=== PATIENT | female | born 1980 | race Two or more races ===

== ENCOUNTER 2017-03-15 11:06 | Emergency (ER) | payer MEDICAID ==
[~2017-03-15] VITALS: Ht 160 cm; Wt 76.7 kg
--- NOTE | 2017-03-15 11:44 | Emergency Room Report ---
History of Present Illness General Chief Complaint: Fever Source: Patient Present Illness HPI Patient feels ill with a flank pain chills fever and body aches with headache since . She's been taking ibuprofen. She was vomiting last night. She also has dysuria. Her period started yesterday and normal for her. She also has a headache which is severe. This was gradual in onset and is pounding - worse with fever - more top of head. Not radiate to neck and no meningismus. She has a history of migraines. She's never been ill like this before. No change in bowels. No anterior abdominal pain. All joints are aching. No rash. No URI sy. No chest pain. Allergies: Coded Allergies: No Known Allergies (Unverified , 03/15/17) Patient History Past Medical History: see triage record Social History Narrative brought by friend - works Last Menstrual Period: 03/14/17 Now: No Reviewed Nursing Documentation: PMH: Agreed, PSxH: Agreed Review of Systems All Other Systems: negative except mentioned in HPI Physical Exam Vital Signs Date Time Temp Pulse Resp B/P (MAP) Pulse Ox O2 Delivery O2 Flow Rate FiO2 03/15/17 11:12 102.0 119 15 116/82 96 Room Air Sp02 EP Interpretation: reviewed, normal General Appearance: well appearing, GCS 15, mild distress Head: normocephalic, atraumatic Eyes: bilateral eye normal inspection, bilateral eye PERRL ENT: normal pharynx, moist mucus membranes Neck: full range of motion, supple, no meningismus Respiratory: chest non-tender, lungs clear, normal breath sounds Cardiovascular #1: regular rate, rhythm Cardiovascular #2: 2+ radial (R) Gastrointestinal: normal inspection, normal bowel sounds, non tender, no mass, non-distended Genitourinary: CVA tenderness (R) Musculoskeletal: gait/station normal, normal range of motion Neurologic: alert, oriented x3, computer forwarding system markup clerk III-XII nml as tested, motor strength/tone normal, DTRs symmetric, sensory intact, cerebellar normal, normal gait, speech normal Psychiatric: anxious Skin: normal inspection, warm/dry Medical Decision Making Diagnostic Impression: Primary Impression: Pyelonephritis Additional Impression: Headache Qualified Codes: R51 - Headache ER Course Patient presents with fever chills and total body pain with more right flank pain. Differential includes viral syndrome, pyelonephritis, urinary tract infection, diverticulitis amongst others. Evaluation will be with labs and urinalysis. The patient will receive IV hydration, Toradol and morphine. Urinalysis reveals pyuria. Rocephin is begun here. Leukocytosis. Abd exam against surgical cause. Patient still complains about headache. Dilaudid is given at this time. Still with MEJÍA but improved. Discussed with patient to return if not doing well. Patient stable for outpatient observation and treatment. Laboratory Tests Test 03/15/17 11:56 03/15/17 13:30 White Blood Count 12.9 K/UL (4.8-10.8) H Red Blood Count 4.54 M/UL (4.20-5.40) Hemoglobin 13.7 G/DL (12.0-16.0) Hematocrit 40.1 % (37.0-47.0) Mean Corpuscular Volume 88 FL (80-99) Mean Corpuscular Hemoglobin 30.1 PG (27.0-31.0) Mean Corpuscular Hemoglobin Concent 34.0 G/DL (32.0-36.0) Red Cell Distribution Width 12.6 % (11.6-14.8) Platelet Count 232 K/UL (150-450) Mean Platelet Volume 7.1 FL (6.5-10.1) Neutrophils (%) (Auto) % (45.0-75.0) Lymphocytes (%) (Auto) % (20.0-45.0) Monocytes (%) (Auto) % (1.0-10.0) Eosinophils (%) (Auto) % (0.0-3.0) Basophils (%) (Auto) % (0.0-2.0) Differential Total Cells Counted 100 Neutrophils % (Manual) 92 % (45-75) H Lymphocytes % (Manual) 4 % (20-45) L Monocytes % (Manual) 2 % (1-10) Eosinophils % (Manual) 0 % (0-3) Basophils % (Manual) 0 % (0-2) Band Neutrophils 2 % (0-8) Platelet Estimate Adequate Platelet Morphology Normal Red Blood Cell Morphology Normal Sodium Level 139 mEQ/L (135-145) Potassium Level 3.3 mEQ/L (3.4-4.9) L Chloride Level 101 mEQ/L (98-107) Carbon Dioxide Level 23 mEQ/L (20-30) Anion Gap 15 (5-15) Blood Urea Nitrogen 9 mg/dL (7-23) Creatinine 0.9 mg/dL (0.5-0.9) Estimate Glomerular Filtration Rate > 60 mL/min (>60) Glucose Level 107 mg/dL (74-106) H Calcium Level 8.8 mg/dL (8.6-10.2) Total Bilirubin 0.5 mg/dL (0.0-1.2) Aspartate Amino Transferase (AST) 15 U/L (5-40) Alanine Aminotransferase (ALT) 13 U/L (3-33) Alkaline Phosphatase 52 U/L (35-104) Total Protein 7.4 g/dL (6.6-8.7) Albumin 4.0 g/dL (3.5-5.2) Globulin 3.4 g/dL Albumin/Globulin Ratio 1.1 (1.0-2.7) Lipase 12 U/L (< 60) Urine Color Pale yellow Urine Appearance Cloudy Urine pH 6 (4.5-8.0) Urine Specific [place] 1.010 (1.005-1.035) Urine Protein 2+ (NEGATIVE) H Urine Glucose (UA) Negative (NEGATIVE) Urine Ketones 1+ (NEGATIVE) H Urine Occult Blood 5+ (NEGATIVE) H Urine Nitrite Positive (NEGATIVE) H Urine Bilirubin Negative (NEGATIVE) Urine Urobilinogen Normal MG/DL (0.0-1.0) Urine Leukocyte Esterase 3+ (NEGATIVE) H Urine RBC 5-10 /HPF (0 - 2) H Urine WBC 60-80 /HPF (0 - 2) H Urine Squamous Epithelial Cells Few /LPF (NONE/OCC) Urine Bacteria Moderate /HPF (NONE) H Urine HCG, Qualitative Negative Last Vital Signs Date Time Temp Pulse Resp B/P (MAP) Pulse Ox O2 Delivery O2 Flow Rate FiO2 03/15/17 15:40 98.4 84 15 116/82 97 Room Air Status: improved Disposition: HOME, SELF-CARE Condition: Improved Scripts Tramadol Hcl* (ULTRAM*) 50 Mg Tablet 50 MG ORAL Q6H Y for For Pain, #10 TAB 0 Refills Prov: Rodriguez Melendez M.D. 03/15/17 Acetaminophen (Tylenol) 325 Mg Tablet 650 MG ORAL Q6H Y for Prn Pain/Headache/Temp > 101, #30 TAB 0 Refills Prov: Rodriguez Melendez M.D. 03/15/17 Ibuprofen* (MOTRIN*) 600 Mg Tablet 600 MG ORAL Q6H Y for For Pain, #20 TAB Prov: Rodriguez Melendez M.D. 03/15/17 Cephalexin* (KEFLEX*) 500 Mg Capsule 500 MG ORAL Q6H, #40 CAP 0 Refills Prov: Rodriguez Melendez M.D. 03/15/17 Rodriguez Melendez M.D. Mar 15, 2017 11:44
[2017-03-15] MEDS ORDERED: Morphine Sulfate 4mg/ml Inj IVP ONE (11:45)
[2017-03-15] MEDS ORDERED: Ketorolac 30mg Inj IV ONE (11:45)
[2017-03-15 12:00] VITALS: BP 116/82
[2017-03-15 12:23] LABS: MEAN CORPUSCULAR HEMOGLOBIN 30.1 PG (27.0-31.0); MEAN CORPUSCULAR VOLUME 88 FL (80-99); MEAN PLATELET VOLUME 7.1 FL (6.5-10.1); PLATELET COUNT 232 K/UL (150-450); RED BLOOD COUNT 4.54 M/UL (4.20-5.40); RED CELL DISTRIBUTION WIDTH 12.6 % (11.6-14.8); WHITE BLOOD COUNT 12.9 K/UL (4.8-10.8)
[2017-03-15 12:28] LABS: ALANINE AMINOTRANSFERASE 13 U/L (3-33); ALBUMIN/GLOBULIN RATIO 1.1 (1.0-2.7); ANION GAP 15 (5-15); ASPARTATE AMINO TRANSFERASE 15 U/L (5-40); CALCIUM 8.8 mg/dL (8.6-10.2); CARBON DIOXIDE 23 mEQ/L (20-30); CHLORIDE 101 mEQ/L (98-107); CREATININE 0.9 mg/dL (0.5-0.9); GLOMERULAR FILTRATION RATE > 60 mL/min (>60); HEMOLYSIS 1; LIPASE 12 U/L (< 60); POTASSIUM 3.3 mEQ/L (3.4-4.9); SODIUM 139 mEQ/L (135-145); TOTAL PROTEIN 7.4 g/dL (6.6-8.7)
[2017-03-15 13:02] LABS: BAND NEUTROPHILS % (MANUAL) 2 % (0-8); LYMPHOCYTES % (MANUAL) 4 % (20-45); NEUTROPHILS % (MANUAL) 92 % (45-75); TOTAL CELLS COUNTED 100
[2017-03-15 13:03] LABS: BASOPHILS % (MANUAL) 0 % (0-2); EOSINOPHILS % (MANUAL) 0 % (0-3); PLATELET ESTIMATE ADEQUATE; PLATELET MORPHOLOGY NORMAL
[2017-03-15 14:04] LABS: APPEARANCE,URINE CLOUDY; KETONES,URINE 1+ (NEGATIVE); LEUKOCYTE ESTERASE ,URINE 3+ (NEGATIVE); NITRITE,URINE POSITIVE (NEGATIVE); PH,URINE 6 (4.5-8.0); PROTEIN,URINE 2+ (NEGATIVE); UROBILINOGEN,URINE NORMAL MG/DL (0.0-1.0)
[2017-03-15 14:12] LABS: BACTERIA,URINE MODERATE /HPF; SQUAMOUS EPITHELIAL CELL,UR FEW /LPF (NONE/OCC); WBC,URINE 60-80 /HPF (0 - 2)
[2017-03-15] MEDS ORDERED: cefTRIAXone 1 GM in NS 55 ML IVPB ONE (14:15)
[2017-03-15] MEDS ORDERED: Hydromorphone 0.5mg/0.5ml inj IVP ONE (15:00)
[2017-03-15 15:06] VITALS: BP 116/82
[2017-03-15] MEDS ORDERED: TYLENOL325 MG ORAL (15:26)
[2017-03-15] MEDS ORDERED: IBUPROFEN600 MG ORAL (15:26)
[2017-03-15] MEDS ORDERED: KEFLEX500 MG ORAL (15:26)
[2017-03-15] MEDS ORDERED: TRAMADOL HCL50 MG ORAL (15:27)
[2017-03-15 15:40] VITALS: BP 116/82
== END 2017-03-15 15:41 | disposition home or self-care (01) ==
LOC: EMR 11:45
DX: N12 Tubulo-interstitial nephritis, not specified as acute or chronic (principal); R51 Headache
CPT/HCPCS: 36415; 80053; 81003; 81025; 83690; 85007; 85025; 87086; 87181; 96361; 96374; 96375; 99284; J0696; J1170; J1885; J2270; J2405

== ENCOUNTER 2018-05-04 17:54 | Emergency (ER) | payer MEDICAID ==
[~2018-05-04] VITALS: Ht 160 cm; Wt 68.0 kg
[~2018-05-04 17:54] MED LIST: IBUPROFEN600 MG ORAL; KEFLEX500 MG ORAL; TRAMADOL HCL50 MG ORAL; TYLENOL325 MG ORAL
[2018-05-04 18:13] VITALS: BP 123/84
[2018-05-04] MEDS ORDERED: CORTISPORIN10 ML OTIC (18:17)
--- NOTE | 2018-05-04 18:17 | Emergency Room Report ---
History of Present Illness General Chief Complaint: Earache Source: Patient Present Illness HPI 37-year-old female patient presents ER complaining of ear pain for the past 2 days. Patient reports that she believes the symptoms are the result of when she was moving some boxes and some mothballs fell down. Reports her symptoms began the next day. Denies recent swimming. Patent states that she uses Q- tips. Denies fever, chest pain, shortness of breath, vomiting. Allergies: Coded Allergies: No Known Allergies (Unverified , 03/15/17) Patient History Past Medical History: see triage record Last Menstrual Period: Now Now: No Reviewed Nursing Documentation: PMH: Agreed; PSxH: Agreed Nursing Documentation-PMH Past Medical History: No History, Except For Review of Systems All Other Systems: negative except mentioned in HPI Physical Exam Vital Signs Date Time Temp Pulse Resp B/P (MAP) Pulse Ox O2 Delivery O2 Flow Rate FiO2 05/04/18 18:03 98.4 68 19 123/84 96 Room Air Sp02 EP Interpretation: reviewed, normal General Appearance: well appearing, no apparent distress, alert, GCS 15, non- toxic Head: normocephalic, atraumatic Eyes: bilateral eye normal inspection, bilateral eye PERRL ENT: hearing grossly normal, normal pharynx, no angioedema, normal voice, TMs + canals normal - right ear, uvula midline, moist mucus membranes, other - left ear: purulent discharge noted in ear canal, pain with ear pulling Neck: full range of motion Respiratory: lungs clear, normal breath sounds, no rhonchi, no respiratory distress, no accessory muscle use, no wheezing, speaking full sentences Cardiovascular #1: regular rate, rhythm, no edema Musculoskeletal: back normal, digits/nails normal, gait/station normal, normal range of motion, non-tender Neurologic: alert, oriented x3, responsive, motor strength/tone normal, sensory intact Skin: no rash Medical Decision Making PA Attestation Dr. Matthews is my supervising Physician whom patient management has been discussed with. Diagnostic Impression: Primary Impression: Otitis externa ER Course Pt presents to ED c/o ear pain. DDX considered but are not limited to rhinitis, sinusitis, otitis media, otitis externa, cellulitis, mastoiditis, cerumen impaction. Low suspicion for mastoiditis, no swelling or erythema noted posterior to ear, no TTP. VITAL SIGNS are WNL, patient is afebrile. ED INTERVENTIONS: Patient ear cleaned and irrigated with saline lavage. Cerumen and purulent discharge removed following lavage. No FB visualized. patient reports symptoms have improved, states she can hear better following lavage. Repeat exam shows nonerythematous TM without effusion, no rupture, erythematous and edematous ear canal. likely otitis externa. Continue taking medications as previously instructed. Avoid swimming. do not use q-tips ER precautions given. DISCHARGE: -Rx provided for Neomycin/polmyxin B At this time pt is stable for d/c to home. resting comfortably chest, nontoxic appearing. Patient to take medications as instructed Will provide with patient care instructions and any necessary prescriptions. Care plan and follow-up instructions provided. Patient instructed to follow-up with primary care in 3 - 5 days. Patient questions asked and answered. ER precautions given. Patient instructed to return to ER immediately for any new or worsening of symptoms including but not limited to increasing SOB, persistent fever. - Please note that this Emergency Department Report was dictated using [employer] roll operator technology software, occasionally this can lead to erroneous entry secondary to interpretation by the dictation equipment. Last Vital Signs Date Time Temp Pulse Resp B/P (MAP) Pulse Ox O2 Delivery O2 Flow Rate FiO2 05/04/18 18:03 98.4 68 19 123/84 96 Room Air Status: improved Disposition: HOME, SELF-CARE Condition: Stable Scripts Neomycin/Polymyxin/Hydrocort (Ysdujiig-Lorlqwtfv-Hd Ear Soln) 10 Ml Solution 10 ML OTIC TID, #10 ML Prov: Dakota Fuller 05/04/18 Referrals: NOT CHOSEN IPA/,REFERRING (PCP) Patient Instructions: Otitis Externa Additional Instructions: Followup with primary care provider in 3 -5 days. Discuss referral to ENT specialist as needed. Take medications as directed. Patient questions asked and answered. ER precautions given, patient instructed to return to ER immediately for any new or worsening of symptoms. Dakota Fuller May 04, 2018 18:17
[2018-05-04 18:29] VITALS: BP 123/84
== END 2018-05-04 18:29 | disposition home or self-care (01) ==
LOC: EMR 18:12
DX: H60.92 Unspecified otitis externa, left ear (principal)
CPT/HCPCS: 99282

== ENCOUNTER 2018-09-24 21:07 | Emergency (ER) | payer MEDICAID ==
[~2018-09-24] VITALS: Ht 152.4 cm; Wt 68.9 kg
[~2018-09-24 21:07] MED LIST changes: +CORTISPORIN10 ML OTIC
[2018-09-24 21:10] VITALS: BP 126/78
[2018-09-24] MEDS ORDERED: NKM (21:20)
--- NOTE | 2018-09-24 21:23 | NUR ---
ED Nurse Note: pt walked in due to cough, cold and headache x 5 days. Pt si AO x 4times, VSS, on room air no distress. ERMD seen Pt at bedside.
[2018-09-24] MEDS ORDERED: AUGMENTIN 875-1 EAC1 ORAL (21:35)
[2018-09-24] MEDS ORDERED: PSEUDOEPHEDRINE60 MG PO (21:35)
--- NOTE | 2018-09-24 21:37 | Emergency Room Report ---
History of Present Illness General Chief Complaint: Upper Respiratory Illness Source: Patient Present Illness [facility] This is a 38-year-old female with no past medical history. She presents with chief complaint of coughing congestion. Onset for 5 days. Increasing ear pain. Increasing congestion. Coughing is productive of phlegm. No fever chills but no nausea no vomiting. Denies any trauma. Nothing made it better. Nothing made it worse. No relief with [id number] medication. Allergies: Coded Allergies: No Known Allergies (Unverified , 03/15/17) Patient History Past Medical History: see triage record, old chart reviewed Past Surgical History: none Pertinent Family History: none Social History: Denies: smoking Last Menstrual Period: september Now: No : 3 Para: 3 Immunizations: other Reviewed Nursing Documentation: PMH: Agreed; PSxH: Agreed Review of Systems Eye: Reports: nose congestion; Denies: eye pain, blurred vision ENT: Reports: ear pain; Denies: nose congestion, throat swelling Respiratory: Reports: cough; Denies: shortness of breath Cardiovascular: Denies: chest pain, palpitations Gastrointestinal: Denies: abdominal pain, diarrhea, nausea, vomiting Musculoskeletal: Denies: back pain, joint pain Skin: Denies: rash Neurological: Denies: headache, numbness Endocrine: Denies: increased thirst, increased urine Hematologic/Lymphatic: Denies: easy bruising All Other Systems: negative except mentioned in HPI Physical Exam Vital Signs Date Time Temp Pulse Resp B/P (MAP) Pulse Ox O2 Delivery O2 Flow Rate FiO2 09/24/18 21:16 98.1 75 18 122/79 97 Room Air vitals normal Sp02 EP Interpretation: reviewed, normal General Appearance: well appearing, no apparent distress, alert Head: normocephalic, atraumatic Eyes: bilateral eye PERRL, bilateral eye EOMI ENT: hearing grossly normal, normal pharynx, other - Bilateral TM with effusion Neck: full range of motion, supple, no meningismus Respiratory: chest non-tender, lungs clear, normal breath sounds Cardiovascular #1: regular rate, rhythm, no murmur Gastrointestinal: normal bowel sounds, non tender, no mass, no organomegaly, no bruit, non-distended Musculoskeletal: back normal, gait/station normal, normal range of motion Psychiatric: mood/affect normal Skin: warm/dry Medical Decision Making Diagnostic Impression: Primary Impression: Upper respiratory infection Qualified Codes: J06.9 - Acute upper respiratory infection, unspecified Additional Impression: Bilateral otitis media with effusion ER Course She presents with a viral upper respiratory infection with secondary otitis media bilaterally. Notice any sepsis, meningitis, pneumonia or other serious bacterial infection. Last Vital Signs Date Time Temp Pulse Resp B/P (MAP) Pulse Ox O2 Delivery O2 Flow Rate FiO2 09/24/18 21:16 98.1 75 18 122/79 97 Room Air Status: unchanged Disposition: HOME, SELF-CARE Condition: Stable Scripts Pseudoephedrine Hcl* (SUDAFED*) 60 Mg Tablet 60 MG PO Q6H, #30 TAB Prov: Pavan Estrella MD 09/24/18 Amoxicillin/Potassium Clav 875-125* (AUGMENTIN 875-125 TABLET*) 1 Each Tablet 1 TAB ORAL TWICE A DAY, #14 TAB Prov: Pavan Estrella MD 09/24/18 Referrals: NON PHYSICIAN (PCP) Patient Instructions: Upper Respiratory Infection, Adult Additional Instructions: Follow-up with your DrWilbert in 2-3 days. Return if symptom worsen. Pavan Estrella MD Sep 24, 2018 21:37
[2018-09-24 21:47] VITALS: BP 122/79
--- NOTE | 2018-09-24 21:47 | NUR ---
ER DISCHARGE NOTE: Patient is cleared to be discharged per ERMD, pt is aox4, on room air, with stable vital signs. pt was given dc and prescription instructions, pt was able to verbalize understanding, pt id band and removed without complications. pt is able to ambulate with steady gait. pt took all belongings.
== END 2018-09-24 21:47 | disposition home or self-care (01) ==
LOC: EMR 21:24
DX: J06.9 Acute upper respiratory infection, unspecified (principal); H65.93 Unspecified nonsuppurative otitis media, bilateral; B34.9 Viral infection, unspecified
CPT/HCPCS: 99282

== ENCOUNTER 2019-02-03 15:59 | Emergency (ER) | payer MEDICAID ==
[~2019-02-03] VITALS: Ht 157.5 cm; Wt 71.7 kg
[~2019-02-03 15:59] MED LIST changes: +AUGMENTIN 875-1 EAC1 ORAL; +NKM; +PSEUDOEPHEDRINE60 MG PO
[2019-02-03 16:40] VITALS: BP 105/74
--- NOTE | 2019-02-03 16:54 | Emergency Room Report ---
History of Present Illness General Chief Complaint: Pain Source: Patient Present Illness HPI 38-year-old female with no segment past medical history here complaining of minimal pain 3 out of 10 at the navel and mild to clear discharge coming out today. Patient reports that she often cleans her navel with Q-tips. Denies any abdominal pain, nausea vomiting, heavy lifting, history of umbilical hernia. Patient reports that many years ago she had bilateral tubal ligation and a date that laparoscopically going to her navel. No fever and chills, chest pain, shortness of breath, palpitation. No erythema or edema noted at the site of patient's complaint. Denies all other associated symptoms denies any medication for her symptoms. Allergies: Coded Allergies: No Known Allergies (Unverified , 03/15/17) Patient History Past Medical History: see triage record Past Surgical History: unable to obtain Pertinent Family History: none Last Menstrual Period: 02/03/19 Now: No Immunizations: UTD Reviewed Nursing Documentation: PMH: Agreed; PSxH: Agreed Nursing Documentation-PMH Past Medical History: No History, Except For Review of Systems All Other Systems: negative except mentioned in HPI Physical Exam Vital Signs Date Time Temp Pulse Resp B/P (MAP) Pulse Ox O2 Delivery O2 Flow Rate FiO2 02/03/19 16:15 98.8 69 20 105/74 (84) 98 Room Air Sp02 EP Interpretation: reviewed, normal General Appearance: normal inspection, well appearing, no apparent distress, alert, GCS 15 Head: normocephalic, atraumatic Eyes: bilateral eye normal inspection, bilateral eye PERRL ENT: normal ENT inspection, hearing grossly normal, normal pharynx Neck: normal inspection, full range of motion, supple Respiratory: normal inspection, chest non-tender, lungs clear, normal breath sounds, no rhonchi Cardiovascular #1: normal inspection, regular rate, rhythm, no murmur Gastrointestinal: normal inspection, normal bowel sounds, non tender, soft, no peritonitis, no guarding Rectal: deferred Genitourinary: normal inspection, no CVA tenderness Musculoskeletal: back normal Neurologic: normal inspection, alert Psychiatric: normal inspection, judgement/insight normal Skin: no rash Lymphatic: normal inspection, no adenopathy Medical Decision Making PA Attestation All diagnoses and treatment plans were reviewed and discussed with my supervising physician Dr. Jose Diagnostic Impression: Primary Impression: Navel cellulitis ER Course 38-year-old female with no segment past medical history here complaining of minimal pain 3 out of 10 at the navel and mild to clear discharge coming out today. Patient reports that she often cleans her navel with Q-tips. Denies any abdominal pain, nausea vomiting, heavy lifting, history of umbilical hernia. Patient reports that many years ago she had bilateral tubal ligation and a date that laparoscopically going to her navel. No fever and chills, chest pain, shortness of breath, palpitation. No erythema or edema noted at the site of patient's complaint. Denies all other associated symptoms denies any medication for her symptoms. Ddx considered but are not limited to : Cellulitis, DVT, superficial infection, abscess Vital signs: are WNL, pt. is afebrile H&PE are most consistent with: Superficial cellulitis of the navel ORDERS: Keflex ED INTERVENTIONS: None required at this time. DISCHARGE: At this time pt. is stable for d/c to home. Will provide printed patient care instructions, and any necessary prescriptions. Care plan and follow up instructions have been discussed with the patient prior to discharge. Patient to follow-up with a primary care provider for further work-up and abdominal ultrasound at this time no acute condition is noted in order to indicate any imaging or blood work this patient is stable with stable vital signs Last Vital Signs Date Time Temp Pulse Resp B/P (MAP) Pulse Ox O2 Delivery O2 Flow Rate FiO2 02/03/19 16:40 98.8 74 20 105/74 98 Room Air Disposition: HOME, SELF-CARE Condition: Stable Scripts Cephalexin* (KEFLEX*) 500 Mg Capsule 500 MG ORAL EVERY 6 HOURS for 7 Days, #28 CAP Prov: Rosa Berg 02/03/19 Patient Instructions: Cellulitis, [id number] Additional Instructions: Take medication as directed follow-up with a primary care provider at this time no erythema and discharge is noted at the site of your infection however if any changes of symptoms such as fever and chills, severe abdominal pain return to the emergency room. Have primary care provider follow-up with blood work as well as abdominal ultrasound Rosa Berg Feb 03, 2019 16:54
[2019-02-03] MEDS ORDERED: CEPHALEXIN500 MG ORAL (16:59)
--- NOTE | 2019-02-03 17:10 | NUR ---
ER DISCHARGE NOTE: Patient is cleared to be discharged per PA, pt is aox4, on room air, with stable vital signs. pt was given dc and prescription instructions, pt was able to verbalize understanding, pt id band removed. pt is able to ambulate with steady gait. pt took all belongings.
== END 2019-02-03 17:10 | disposition home or self-care (01) ==
LOC: EMR 17:00
DX: L03.316 Cellulitis of umbilicus (principal)
CPT/HCPCS: 99282

== ENCOUNTER 2020-05-02 18:05 | Emergency (ER) | payer MEDICAID ==
[~2020-05-02] VITALS: Ht 162.6 cm; Wt 68.9 kg
[~2020-05-02 18:05] MED LIST changes: +CEPHALEXIN500 MG ORAL
[2020-05-02 18:23] VITALS: BP 121/72
--- NOTE | 2020-05-02 18:23 | NUR ---
ED Nurse Note: PT walked in to ed for C/O pain to left neck, shoulder, arm, elbow after falling from a ladder, denieshead injury.
--- NOTE | 2020-05-02 19:01 | NUR ---
ED Nurse Note: report given to rufino osorio. endorsed plan of care.
--- NOTE | 2020-05-02 19:10 | Emergency Room Report ---
History of Present Illness General Chief Complaint: Multiple Trauma/Fall Source: Patient Present Illness HPI Patient is a 39-year-old female presents. Increased left upper extremity pain and left shoulder pain after a fall. Reports having fallen from approximately 4 feet. Hit a cement floor. Denies loss of consciousness. Injury occurred approximately 7 hours prior to arrival. Took ibuprofen earlier in the day. Increased pain to the left elbow as well as to the left shoulder. Denies any other locations of pain. Is right-hand dominant. She was working in a shop. Allergies: Coded Allergies: No Known Allergies (Unverified , 03/15/17) COVID-19 Screening Contact w/high risk pt: No Experienced COVID-19 symptoms?: No COVID-19 Testing performed MACHINE RUG CLEANER: No Patient History Last Menstrual Period: 04/30/20 Reviewed Nursing Documentation: PMH: Agreed; PSxH: Agreed Nursing Documentation-PMH Past Medical History: No Stated History Review of Systems All Other Systems: negative except mentioned in HPI Physical Exam Vital Signs Date Time Temp Pulse Resp B/P (MAP) Pulse Ox O2 Delivery O2 Flow Rate FiO2 05/02/20 18:13 99.1 79 16 121/72 (88) 99 Room Air Sp02 EP Interpretation: reviewed, normal General Appearance: normal inspection, well appearing, no apparent distress, alert, GCS 15, non-toxic Head: atraumatic ENT: normal ENT inspection, hearing grossly normal, normal voice Neck: normal inspection, full range of motion, supple, no bony tend Respiratory: normal inspection, lungs clear, normal breath sounds, no respiratory distress, no retraction, no wheezing Cardiovascular #1: regular rate, rhythm, no edema Gastrointestinal: normal inspection, normal bowel sounds, non tender, soft, no guarding, no hernia Genitourinary: no CVA tenderness Musculoskeletal: normal inspection, back normal, normal range of motion, other - Left elbow soft tissue swelling and abrasion Neurologic: alert, motor strength/tone normal, receptionist nurse III-XII nml as tested, o riented x3, responsive, speech normal, normal inspection Psychiatric: normal inspection, judgement/insight normal, mood/affect normal Skin: abrasion - Abrasion to the left elbow Medical Decision Making Diagnostic Impression: Primary Impression: Fall Additional Impressions: Left elbow contusion Headache Shoulder contusion ER Course Presented for headache, neck pain,, left upper extremity pain and shoulder pain after a fall. Differential diagnosis included but is not limited to head injury, fracture, contusion patient was given pain medications. Extremities x- ray show no evidence of acute fracture. Patient is placed in a sling and given medications for pain. She was advised to follow-up with primary care physician for recheck.Patient was given return precautions. All results of imaging studies and diagnostics were discussed with the patient. At the time of discharge patient was awake alert oriented and ambulatory without assistance. This medical record is generated with [employer] documentation supervisor software. There may be some documentation supervisor discrepancies related to use of this software Last Vital Signs Date Time Temp Pulse Resp B/P (MAP) Pulse Ox O2 Delivery O2 Flow Rate FiO2 05/02/20 18:23 79 16 Room Air 05/02/20 18:23 99.1 121/72 99 Status: improved Disposition: HOME, SELF-CARE Condition: Stable Scripts Bacitracin Zinc* (BACITRACIN ZINC*) 1 Each Packet 1 APPLIC TOPIC THREE TIMES A DAY, #20 PACKET Prov: Damaso Grier MD 05/02/20 Ibuprofen* (MOTRIN*) 400 Mg Tablet 400 MG ORAL Q8H, #30 TAB 0 Refills Prov: Damaso Grier MD 05/02/20 Damaso Grier MD May 02, 2020 19:10
[2020-05-02] MEDS ORDERED: BACITRACIN ZIN1 EACH TOPIC (19:57)
[2020-05-02] MEDS ORDERED: IBUPROFEN400 MG ORAL (19:57)
[2020-05-02 20:00] VITALS: BP 129/77
[2020-05-02] MEDS ORDERED: Bacitracin Oint UD TOPIC ONE (20:00)
--- NOTE | 2020-05-02 20:00 | NUR ---
ER DISCHARGE NOTE: Patient is cleared to be discharged per ERMD, pt is aox4, on room air, with stable vital signs. pt was given dc and prescription instructions, pt was able to verbalize understanding, pt id band and iv site removed without complications. pt is able to ambulate with steady gait. pt took all belongings.
--- NOTE | 2020-05-02 20:08 | Diagnostic Imaging Report ---
EXAM: CT Head Without Intravenous Contrast CLINICAL HISTORY: PAIN, trauma, fall TECHNIQUE: Axial computed tomography images of the head/brain without intravenous contrast. CTDI is 53.4 mGy and DLP is 938.7 mGy-cm. One or more of the following dose reduction techniques were used: automated exposure control, adjustment of the mA and/or kV according to patient size, use of iterative reconstruction technique. COMPARISON: No relevant prior studies available. FINDINGS: Brain: No acute hemorrhage, large hypodensity, or significant mass effect. Ventricles: No significant abnormality. Bones/joints: No acute abnormality. Soft tissues: No significant abnormality. Sinuses: Mild mucosal thickening. Mastoid air cells: No significant abnormality. IMPRESSION: No acute intracranial hemorrhage or calvarial fracture.
[2020-05-02 20:10] VITALS: BP 121/72
--- NOTE | 2020-05-02 20:10 | Diagnostic Imaging Report ---
EXAM: CT Cervical Spine Without Intravenous Contrast CLINICAL HISTORY: PAIN TECHNIQUE: Axial computed tomography images of the cervical spine without intravenous contrast. CTDI is 53.40 mGy and DLP is 938.70 mGy-cm. One or more of the following dose reduction techniques were used: automated exposure control, adjustment of the mA and/or kV according to patient size, use of iterative reconstruction technique. COMPARISON: No relevant prior studies available. FINDINGS: Vertebrae: No acute fracture or malalignment. Straightening of the normal cervical lordosis. Discs/spinal canal/neural foramina: No acute findings. No significant osseous spinal stenosis. Soft tissues: No significant abnormality. IMPRESSION: No acute fracture or malalignment.
--- NOTE | 2020-05-03 16:34 | Diagnostic Imaging Report ---
Indication: Pain Technique: 3 views of the left shoulder Comparison: none Findings: No acute fractures. No dislocations. The joint spaces are preserved Impression: Negative
--- NOTE | 2020-05-03 16:35 | Diagnostic Imaging Report ---
Indications:Pain, trauma, status post fall Technique: Three or 4 views of the left elbow Comparison: None Findings: No acute fractures. No dislocations. The joint spaces are preserved Impression: Negative
== END 2020-05-02 20:10 | disposition home or self-care (01) ==
LOC: EMR 19:27
DX: S50.02XA Contusion of left elbow, initial encounter (principal); S40.012A Contusion of left shoulder, initial encounter; R51.9 Headache, unspecified; W17.89XA Other fall from one level to another, initial encounter; Y92.9 Unspecified place or not applicable
CPT/HCPCS: 70450; 72125; 73030; 73080; Z7502; 99284